=== PATIENT | male | born 1940 | race Caucasian/White ===

== ENCOUNTER → 2023-07-11 08:24 | Outpatient (REF) | payer MEDICARE, BC, SELFPAY | LOC: HWRAD 08:24 | PROVIDERS: ATTENDING PHYSICIAN Physician Assistant Medical | DX: M19.042 Primary osteoarthritis, left hand (principal); M19.041 Primary osteoarthritis, right hand | CPT/HCPCS: 73130 ==

== ENCOUNTER → 2024-03-05 10:28 | Outpatient (REF) | payer MEDICARE, BC, SELFPAY | LOC: HWRAD 10:28 | PROVIDERS: ATTENDING PHYSICIAN Physician Assistant Medical | DX: R13.10 Dysphagia, unspecified (principal) | CPT/HCPCS: 70360 ==

== ENCOUNTER → 2024-03-20 15:52 | Outpatient (REF) | payer MEDICARE, BC, SELFPAY | LOC: RAD 15:52 | PROVIDERS: ATTENDING PHYSICIAN Physician Assistant Medical | DX: R13.10 Dysphagia, unspecified (principal); R93.89 Abnormal findings on diagnostic imaging of other specified body structures | CPT/HCPCS: 70491; Q9967 ==

== ENCOUNTER → 2024-11-06 10:08 | Outpatient (REF) | payer MEDICARE, BC, SELFPAY | LOC: HWRAD 10:08 | PROVIDERS: ATTENDING PHYSICIAN Physician Assistant Medical | DX: M25.551 Pain in right hip (principal) | CPT/HCPCS: 73502 ==